=== PATIENT | male | born 1970 | race Caucasian/White ===

== ENCOUNTER 2016-11-20 14:49 | Inpatient (IN) | payer OTHER ==
[2016-11-20 15:36] VITALS: BMI 25.7
--- NOTE | 2016-11-20 17:15 | HP ---
COWS - Scale Resting Pulse: 0= [place] 80 or Below Sweatin=Flushed/Facial Moisture Restless Observation: 1= Difficult to Sit Still Pupil Size: 2= Moderately Dilated Bone or Joint Aches: 2= Severe Diffuse Aches Runny Nose/ Eye Tearin= Runny Nose/Eyes GI Upset > 30mins: 2= Nausea/Diarrhea Tremor Observation: 2= Slight Tremor Visible Yawning Observation: 1= 1-2x During Session Anxiety or Irritability: 2=Irritable/Anxious Goose Flesh Skin: 0=Smooth Skin COWS Score: 16 Admission ROS S - HPI Chief Complaint: Withdrawal sx. Allergies/Adverse Reactions: Allergies Allergy/AdvReac Type Severity Reaction Status Date / Time shrimp Allergy Verified 11/20/16 17:08 History of Present Illness: 46 y/o man with a long hx. of drug dependence is admitted for detox.Pt. has been in previous detox,denies significant period drug free. Exam Limitations: No Limitations - Ebola screening Have you traveled outside of the country in the last 21 days: No Have you had contact with anyone from an Ebola affected area: No Have you been sick,other than usual withdrawal symptoms: No Do you have a fever: No - Review of Systems Constitutional: Diaphoresis EENT: reports: Nose Congestion Respiratory: reports: Cough (asthma), Wheezing (asthma) Cardiac: reports: No Symptoms Reported GI: reports: Nausea, Abdominal cramping : reports: No Symptoms Reported Musculoskeletal: reports: Back Pain, Joint Pain, Muscle Pain Integumentary: reports: Erythema Neuro: reports: Tremors Endocrine: reports: No Symptoms Reported Hematology: reports: No Symptoms Reported Psychiatric: reports: No Sypmtoms Reported Other Systems: Reviewed and Negative Patient History - Patient Medical History Hx Anemia: No Hx Asthma: Yes Hx Cancer: No Hx Cardiac Disorders: No Hx Congestive Heart Failure: No Hx Hypertension: No Hx Hypercholesterolemia: No Hx Pacemaker: No HX Cerebrovascular Accident: No Hx Seizures: No Hx Dementia: No Hx Diabetes: No Hx Gastrointestinal Disorders: No Hx Liver Disease: No Hx Genitourinary Disorders: No Hx Sexually Transmitted Disorders: No Hx Renal Disease (ESRD): No Hx Thyroid Disease: No Hx Human Immunodeficiency Virus (HIV): No Hx Hepatitis C: No Hx Depression: No Hx Suicide Attempt: No Hx Bipolar Disorder: No Hx Schizophrenia: No - Patient Surgical History Past Surgical History: No - PPD History Previous Implant?: Yes Documented Results: Negative w/o proof Implanted On Prior [facility] Admission?: No PPD to be Administered?: Yes - Smoking Cessation Smoking history: Current every day smoker Aproximately how many cigarettes per day: 5 Hx Chewing Tobacco Use: No Initiated information on smoking cessation: Yes 'Breaking Loose' booklet given: 11/20/16 - Substance & Tx. History Hx Alcohol Use: No Hx Substance Use: Yes Substance Use Type: Heroin, Marijuana Hx Substance Use Treatment: Yes (detox at [facility] in 2013) - Substances Abused Heroin Route: Inhalation Frequency: Daily Amount used: 5-6 bags Age of first use: 42 Date of Last Use: 11/20/16 Marijuana/Hashish Route: Smoking Frequency: Daily Amount used: $10-20.00 Age of first use: 15 Date of Last Use: 11/19/16 Family Disease History - Family Disease History Family Disease History: Diabetes: Father (HTN,NC), Heart Disease: Father, Respiratory: Mother Admission Physical Exam [facility] - Vital Signs Vital Signs: Vital Signs - 24 hr 11/20/16 15:13 Temperature 97.2 F L Pulse Rate 74 Respiratory 18 Rate Blood Pressure 153/84 - Physical General Appearance: Yes: Sweating, Anxious HEENTM: Yes: Nasal Congestion, Rhinorrhea Respiratory: Yes: Chest Non-Tender, Wheezing (mild expiratory wheezing) Neck: Yes: Supple Breast: Yes: Breast Exam Deferred Cardiology: Yes: Regular Rhythm, Regular Rate, S1, S2 Abdominal: Yes: Normal Bowel Sounds, Non Tender, Soft Genitourinary: Yes: Within Normal Limits Back: Yes: Within Normal Limits Musculoskeletal: Yes: Within Normal Limits Extremities: Yes: Tremors Neurological: Yes: Fully Oriented, Alert Integumentary: Yes: Diaphoresis Lymphatic: Yes: Within Normal Limits - Diagnostic (1) Cannabis dependence, uncomplicated Current Visit: Yes Status: Acute (2) Opioid dependence with withdrawal Current Visit: Yes Status: Acute (3) Asthma Current Visit: Yes Status: Acute Cleared for Admission [facility] - Detox or Rehab [facility] Level of Care: Medically Managed Detox Regimen/Protocol: Methadone [facility] Breath Alcohol Content Breath Alcohol Content: 0 Urine Drug Screen - Results Drug Screen Negative: No Urine Drug Screen Results: THC-Marijuana, OPI-Opiates, PCP-Phencyclidine, BZO- Benzodiazepines
[2016-11-20] MEDS ORDERED: NICOTINE POLACRILEX 2 MG GUM BC PRN (17:28)
[2016-11-20] MEDS ORDERED: guaiFENesin/D-METHORPHAN HB 10 ML UNIT-DOSE CUPS PO PRN (17:28)
[2016-11-20] MEDS ORDERED: METHADONE HCL 10 MG TABLET (FOR DETOX USE ONLY) PO ONE ×2 (17:28→23:00)
[2016-11-20] MEDS ORDERED: MENTHOL/PHENOL 1 EACH UD MM PRN (17:28)
[2016-11-20] MEDS ORDERED: ACETAMINOPHEN 325 MG TABLET (FP) PO PRN (17:28)
[2016-11-20] MEDS ORDERED: MAGNESIUM HYDROX 2400MG/30ML ORAL SUSPENSION 30 ML CUP PO PRN (17:28)
[2016-11-20] MEDS ORDERED: LOPERAMIDE HCL 2 MG CAPSULE PO PRN (17:28)
[2016-11-20] MEDS ORDERED: P-EPHED 60MG/TRIPROLIDI 2.5MG TABLET PO PRN (17:28)
[2016-11-20] MEDS ORDERED: IBUPROFEN 400 MG TABLET (FP) PO PRN (17:28)
[2016-11-20] MEDS ORDERED: MAG HYDROX/AL HYDROX/SIMETH 30 ML UNIT-DOSE CUP PO PRN (17:28)
[2016-11-20] MEDS ORDERED: MAGNESIUM CITRATE 300 ML BOTTLE PO PRN (17:28)
[2016-11-20] MEDS ORDERED: ALBUTEROL SO4 2.5/IPRATROPIUM 0.5 INH SOL 3 ML VIAL.NEB. NEB PRN (17:29)
[2016-11-20] MEDS: diazePAM 5 MG TABLET PO PRN ×2 (18:06→22:20)
[2016-11-20] MEDS: NICOTINE 14 MG/24 HOURS TOPICAL PATCH TD SCH (18:11)
[2016-11-20] MEDS: ALBUTEROL SO4 2.5/IPRATROPIUM 0.5 INH SOL 3 ML VIAL.NEB. NEB SCH ×2 (18:14→22:19)
[2016-11-20] MEDS: THIAMINE HCL 100 MG TABLET (FP) PO SCH (22:18)
[2016-11-20] MEDS: ALBUTEROL SO4 6.7 GM HFA INHALER IH PRN (23:40)
[2016-11-21] MEDS: diazePAM 5 MG TABLET PO PRN ×4 (03:03→23:24)
[2016-11-21] MEDS: PRENATAL VITAMINS W/ FOLIC ACID TABLET (FP) PO SCH (09:57)
[2016-11-21] MEDS: NICOTINE 14 MG/24 HOURS TOPICAL PATCH TD SCH (09:58)
[2016-11-21] MEDS: ALBUTEROL SO4 2.5/IPRATROPIUM 0.5 INH SOL 3 ML VIAL.NEB. NEB SCH ×4 (09:58→22:15)
[2016-11-21] MEDS ORDERED: METHADONE HCL 10 MG TABLET (FOR DETOX USE ONLY) PO ONE (10:00)
--- NOTE | 2016-11-21 10:22 | EKG ---
Test Reason : Blood Pressure : / mmHG Vent. Rate : 065 BPM Atrial Rate : 065 BPM P-R Int : 140 ms QRS Dur : 090 ms QT Int : 408 ms P-R-T Axes : 054 067 035 degrees QTc Int : 424 ms NORMAL SINUS RHYTHM NORMAL ECG NO PREVIOUS ECGS AVAILABLE Confirmed by PALMER MCLAUGHLIN MD ([id number]) on 11/21/2016 10:22:10 AM Referred By: Confirmed By:PALMER MCLAUGHLIN MD
[2016-11-21 10:35] LABS: MCHC 33.8 g/dl (32.0-35.9); MEAN CELL VOLUME 88.7 fl (80-96); MEAN PLT VOLUME 8.1 fl (7.5-11.1); PLATELET COUNT 244 K/MM3 (134-434); RDW 13.1 % (11.9-15.9); WHITE BLOOD COUNT 6.2 K/mm3 (4.0-10.0)
[2016-11-21 10:36] LABS: ALBUMIN 3.1 g/dl (3.4-5.0); ANION GAP 10 (8-16); CALCIUM 8.1 mg/dL (8.5-10.1); CO2 26 mmol/L (21-32); GLUCOSE,RANDOM 97 mg/dL (74-106); SGOT/AST 18 U/L (15-37); SGPT/ALT 28 U/L (12-78)
[2016-11-21 10:38] LABS: ALK PHOS 89 U/L (45-117); BILIRUBIN,TOTAL 0.2 mg/dL (0.2-1.0); TOT PROT 5.8 g/dl (6.4-8.2)
--- NOTE | 2016-11-21 15:26 | PN ---
BHS COWS - Scale Resting Pulse: 0= [place] 80 or Below Sweatin=Flushed/Facial Moisture Restless Observation: 3= Extraneous Movement Pupil Size: 0= Normal to Room Light Bone or Joint Aches: 2= Severe Diffuse Aches Runny Nose/ Eye Tearin= Runny Nose/Eyes GI Upset > 30mins: 2= Nausea/Diarrhea Tremor Observation of Outstretched Hands: 2= Slight Tremor Visible Yawning Observation: 1= 1-2x During Session Anxiety or Irritability: 2=Irritable/Anxious Goose Flesh Skin: 0=Smooth Skin COWS Score: 16 BHS Progress Note (SOAP) Subjective: Sweating, nausea, anxious, interrupted sleep Objective: 11/21/16 15:25 Last Vital Signs Temp Pulse Resp BP Pulse Ox 97.5 F L 53 L 18 141/84 11/21/16 13:24 11/21/16 13:24 11/21/16 13:24 11/21/16 13:24 Laboratory Tests 11/21/16 11/21/16 11/21/16 07:50 07:50 07:50 WBC 6.2 RBC 4.50 Hgb 13.5 Hct 39.9 MCV 88.7 MCHC 33.8 RDW 13.1 Plt Count 244 MPV 8.1 Sodium 141 Potassium 3.7 Chloride 105 Carbon Dioxide 26 Anion Gap 10 BUN 13 Creatinine 1.0 Creat Clearance w eGFR > 60 Random Glucose 97 Calcium 8.1 L Total Bilirubin 0.2 AST 18 ALT 28 Alkaline Phosphatase 89 Total Protein 5.8 L Albumin 3.1 L RPR Titer Nonreactive Labs noted Assessment: 11/21/16 15:26 Withdrawal symptoms Plan: Continue detox
[2016-11-21] MEDS: ALBUTEROL SO4 6.7 GM HFA INHALER IH PRN (17:24)
[2016-11-21 20:15] LABS: URINE APPEARANCE CLEAR; URINE BILIRUBIN NEGATIVE (NEGATIVE); URINE COLOR STRAW; URINE GLUCOSE (UA) NEGATIVE (NEGATIVE); URINE KETONE NEGATIVE (NEGATIVE); URINE LEUK ESTERASE NEGATIVE (NEGATIVE); URINE NITRITE NEGATIVE (NEGATIVE); URINE PROTEIN NEGATIVE (NEGATIVE); URINE UROBILINOGEN NEGATIVE E.U./dl (0.2-1.0)
[2016-11-21 20:16] LABS: URINE BLOOD 1+ (NEGATIVE)
[2016-11-21 20:18] LABS: URINE MUCUS RARE; URINE RBC 2 /hpf (0-3); URINE WBC <1 /hpf (3-5)
[2016-11-21] MEDS: THIAMINE HCL 100 MG TABLET (FP) PO SCH (22:14)
[2016-11-21] MEDS: diphenhydrAMINE HCL 50 MG CAPSULE PO PRN (22:15)
[2016-11-22] MEDS: diazePAM 5 MG TABLET PO PRN ×3 (03:34→22:12)
[2016-11-22] MEDS ORDERED: METHADONE HCL 5 MG TABLET (FOR DETOX USE ONLY) PO ONE (10:00)
[2016-11-22] MEDS: PRENATAL VITAMINS W/ FOLIC ACID TABLET (FP) PO SCH (10:43)
[2016-11-22] MEDS: ALBUTEROL SO4 2.5/IPRATROPIUM 0.5 INH SOL 3 ML VIAL.NEB. NEB SCH ×2 (11:14→14:00)
[2016-11-22] MEDS: NICOTINE 14 MG/24 HOURS TOPICAL PATCH TD SCH (11:15)
--- NOTE | 2016-11-22 15:05 | PN ---
BHS COWS - Scale Resting Pulse: 0= [place] 80 or Below Sweatin=Flushed/Facial Moisture Restless Observation: 1= Difficult to Sit Still Pupil Size: 0= Normal to Room Light Bone or Joint Aches: 2= Severe Diffuse Aches Runny Nose/ Eye Tearin= Runny Nose/Eyes GI Upset > 30mins: 2= Nausea/Diarrhea Tremor Observation of Outstretched Hands: 2= Slight Tremor Visible Yawning Observation: 1= 1-2x During Session Anxiety or Irritability: 2=Irritable/Anxious Goose Flesh Skin: 0=Smooth Skin COWS Score: 14 BHS Progress Note (SOAP) Subjective: Sweating,anxiety,tremors,interrupted sleep,restless. Objective: 11/22/16 15:03 Vital Signs - 8 hr 11/22/16 11/22/16 09:54 13:55 Temperature 97.8 F 97.5 F L Pulse Rate 48 L 53 L Respiratory 20 18 Rate Blood Pressure 157/92 134/86 Laboratory Tests 11/21/16 11/21/16 11/21/16 07:50 07:50 07:50 WBC 6.2 RBC 4.50 Hgb 13.5 Hct 39.9 MCV 88.7 MCHC 33.8 RDW 13.1 Plt Count 244 MPV 8.1 Sodium 141 Potassium 3.7 Chloride 105 Carbon Dioxide 26 Anion Gap 10 BUN 13 Creatinine 1.0 Creat Clearance w eGFR > 60 Random Glucose 97 Calcium 8.1 L Total Bilirubin 0.2 AST 18 ALT 28 Alkaline Phosphatase 89 Total Protein 5.8 L Albumin 3.1 L Urine Color Urine Appearance Urine pH Ur Specific [place] Urine Protein Urine Glucose (UA) Urine Ketones Urine Blood Urine Nitrite Urine Bilirubin Urine Urobilinogen Ur Leukocyte Esterase Urine RBC Urine WBC Ur Epithelial Cells Urine Mucus RPR Titer Nonreactive 11/21/16 09:55 WBC RBC Hgb Hct MCV MCHC RDW Plt Count MPV Sodium Potassium Chloride Carbon Dioxide Anion Gap BUN Creatinine Creat Clearance w eGFR Random Glucose Calcium Total Bilirubin AST ALT Alkaline Phosphatase Total Protein Albumin Urine Color Straw Urine Appearance Clear Urine pH 5.0 Ur Specific [place] 1.010 Urine Protein Negative Urine Glucose (UA) Negative Urine Ketones Negative Urine Blood 1+ H Urine Nitrite Negative Urine Bilirubin Negative Urine Urobilinogen Negative Ur Leukocyte Esterase Negative Urine RBC 2 Urine WBC <1 Ur Epithelial Cells Rare Urine Mucus Rare RPR Titer labs noted Assessment: 11/22/16 15:04 Withdrawal sx. Plan: Continue detox
[2016-11-22] MEDS: ALBUTEROL SO4 6.7 GM HFA INHALER IH PRN (19:53)
[2016-11-22] MEDS: diphenhydrAMINE HCL 50 MG CAPSULE PO PRN (22:12)
[2016-11-22] MEDS: THIAMINE HCL 100 MG TABLET (FP) PO SCH (22:12)
[2016-11-23] MEDS: hydrOXYzine PAMOATE 50 MG CAPSULE (FP) PO PRN ×2 (01:10→22:06)
[2016-11-23] MEDS: diazePAM 5 MG TABLET PO PRN ×2 (05:44→17:18)
[2016-11-23] MEDS ORDERED: METHADONE HCL 5 MG TABLET (FOR DETOX USE ONLY) PO ONE (10:00)
[2016-11-23] MEDS: PRENATAL VITAMINS W/ FOLIC ACID TABLET (FP) PO SCH (10:07)
[2016-11-23] MEDS: NICOTINE 14 MG/24 HOURS TOPICAL PATCH TD SCH (11:12)
[2016-11-23] MEDS: ALBUTEROL SO4 2.5/IPRATROPIUM 0.5 INH SOL 3 ML VIAL.NEB. NEB SCH ×3 (11:12→22:07)
--- NOTE | 2016-11-23 11:41 | PN ---
BHS Progress Note (SOAP) Subjective: DECREASED ANXIETY,TREMORS, MEDS EFFECTIVE. Objective: 11/23/16 11:40 Vital Signs Temperature 97.2 F L 11/23/16 09:34 Pulse Rate 61 11/23/16 09:34 Respiratory Rate 18 11/23/16 09:34 Blood Pressure 125/85 11/23/16 09:34 O2 Sat by Pulse Oximetry (%) Laboratory Last Values WBC 6.2 K/mm3 (4.0-10.0) 11/21/16 07:50 RBC 4.50 M/mm3 (4.00-5.60) 11/21/16 07:50 Hgb 13.5 GM/dL (11.7-16.9) 11/21/16 07:50 Hct 39.9 % (35.4-49) 11/21/16 07:50 MCV 88.7 fl (80-96) 11/21/16 07:50 MCHC 33.8 g/dl (32.0-35.9) 11/21/16 07:50 RDW 13.1 % (11.9-15.9) 11/21/16 07:50 Plt Count 244 K/MM3 (134-434) 11/21/16 07:50 MPV 8.1 fl (7.5-11.1) 11/21/16 07:50 Sodium 141 mmol/L (136-145) 11/21/16 07:50 Potassium 3.7 mmol/L (3.5-5.1) 11/21/16 07:50 Chloride 105 mmol/L (98-107) 11/21/16 07:50 Carbon Dioxide 26 mmol/L (21-32) 11/21/16 07:50 Anion Gap 10 (8-16) 11/21/16 07:50 BUN 13 mg/dL (7-18) 11/21/16 07:50 Creatinine 1.0 mg/dL (0.7-1.3) 11/21/16 07:50 Creat Clearance w eGFR > 60 (>60) 11/21/16 07:50 Random Glucose 97 mg/dL (74-106) 11/21/16 07:50 Calcium 8.1 mg/dL (8.5-10.1) L 11/21/16 07:50 Total Bilirubin 0.2 mg/dL (0.2-1.0) 11/21/16 07:50 AST 18 U/L (15-37) 11/21/16 07:50 ALT 28 U/L (12-78) 11/21/16 07:50 Alkaline Phosphatase 89 U/L (45-117) 11/21/16 07:50 Total Protein 5.8 g/dl (6.4-8.2) L 11/21/16 07:50 Albumin 3.1 g/dl (3.4-5.0) L 11/21/16 07:50 Urine Color Straw 11/21/16 09:55 Urine Appearance Clear 11/21/16 09:55 Urine pH 5.0 (5.0-8.0) 11/21/16 09:55 Ur Specific [place] 1.010 (1.005-1.025) 11/21/16 09:55 Urine Protein Negative (NEGATIVE) 11/21/16 09:55 Urine Glucose (UA) Negative (NEGATIVE) 11/21/16 09:55 Urine Ketones Negative (NEGATIVE) 11/21/16 09:55 Urine Blood 1+ (NEGATIVE) H 11/21/16 09:55 Urine Nitrite Negative (NEGATIVE) 11/21/16 09:55 Urine Bilirubin Negative (NEGATIVE) 11/21/16 09:55 Urine Urobilinogen Negative E.U./dl (0.2-1.0) 11/21/16 09:55 Ur Leukocyte Esterase Negative (NEGATIVE) 11/21/16 09:55 Urine RBC 2 /hpf (0-3) 11/21/16 09:55 Urine WBC <1 /hpf (3-5) 11/21/16 09:55 Ur Epithelial Cells Rare /hpf (FEW) 11/21/16 09:55 Urine Mucus Rare 11/21/16 09:55 RPR Titer Nonreactive (NONREACTIVE) 11/21/16 07:50 Assessment: 11/23/16 11:40 DECREASED WITHDRAWAL SX Plan: CONTINUE DETOX
[2016-11-23] MEDS: THIAMINE HCL 100 MG TABLET (FP) PO SCH (22:06)
[2016-11-24] MEDS: hydrOXYzine PAMOATE 50 MG CAPSULE (FP) PO PRN (05:48)
[2016-11-24] MEDS: ALBUTEROL SO4 2.5/IPRATROPIUM 0.5 INH SOL 3 ML VIAL.NEB. NEB SCH ×4 (09:40→22:17)
[2016-11-24] MEDS ORDERED: METHADONE HCL 10 MG TABLET (FOR DETOX USE ONLY) PO ONE (10:00)
--- NOTE | 2016-11-24 10:06 | PN ---
BHS Progress Note (SOAP) Subjective: DECREASED WITHDRAWAL SX. ALERT O X 3. OOB ON HALLWAYS AND AROUND THE UNIT. Objective: 11/24/16 10:04 Vital Signs Temperature 97.7 F 11/24/16 09:34 Pulse Rate 76 11/24/16 09:34 Respiratory Rate 18 11/24/16 09:34 Blood Pressure 140/85 11/24/16 09:34 O2 Sat by Pulse Oximetry (%) Assessment: 11/24/16 10:04 NAD Plan: CONTINUE DETOX
[2016-11-24] MEDS: NICOTINE 14 MG/24 HOURS TOPICAL PATCH TD SCH (10:11)
[2016-11-24] MEDS: PRENATAL VITAMINS W/ FOLIC ACID TABLET (FP) PO SCH (10:11)
[2016-11-24] MEDS: ALBUTEROL SO4 6.7 GM HFA INHALER IH PRN (10:12)
[2016-11-24] MEDS: THIAMINE HCL 100 MG TABLET (FP) PO SCH (22:17)
[2016-11-24] MEDS: diphenhydrAMINE HCL 50 MG CAPSULE PO PRN (22:17)
[2016-11-25] MEDS: hydrOXYzine PAMOATE 50 MG CAPSULE (FP) PO PRN (02:44)
[2016-11-25] MEDS ORDERED: METHADONE HCL 5 MG TABLET (FOR DETOX USE ONLY) PO ONE (06:00)
--- NOTE | 2016-11-25 09:53 | DS ---
[facility] Detox Discharge Summary Admission Date: 11/20/16 Discharge Date: 11/25/16 - History Present History: Cannabis Dependence, Opioid Dependence Additional Comments: DETOX COMPLETED. ALERT O X 3. NAD Pertinent Past History: ASTHMA - Physical Exam Results Vital Signs: Vital Signs Temperature 98.9 F 11/25/16 06:52 Pulse Rate 73 11/25/16 06:52 Respiratory Rate 18 11/25/16 06:52 Blood Pressure 150/98 11/25/16 06:52 O2 Sat by Pulse Oximetry (%) Pertinent Admission Physical Exam Findings: WITHDRAWAL SX - Treatment Hospital Course: Detox Protocol Followed, Detoxed Safely, Responded well, Discharged Condition Good Patient has Accepted a Rehab Referral to: REFUSED BUT ENCOURAGED TO GO TO [facility] OPD - Medication Discharge Medications: Ambulatory Orders Albuterol Sulfate Inhaler - [Ventolin HFA Inhaler -] 2 inh PO Q4H PRN 11/20/16 - Diagnosis (1) Asthma Status: Chronic Qualifiers: Asthma severity: mild intermittent Asthma complication type: uncomplicated Qualified Code(s): J45.20 - Mild intermittent asthma, uncomplicated (2) Cannabis dependence, uncomplicated Status: Acute (3) Opioid dependence with withdrawal Status: Acute - AMA Did Patient Leave Against Medical Advice: No
[2016-11-25 10:26] VITALS: BP 134/83; PULSE 80; TEMP 98.5
== END 2016-11-25 10:10 | disposition home or self-care (01) | DRG 773 ==
LOC: YASAS 14:49 → Y3N 17:19
PROVIDERS: ADMIT Internal Medicine; ATTEND Internal Medicine
PROC: HZ2ZZZZ Detoxification Services for Substance Abuse Treatment (ICD-10-PCS; principal; 2016-11-20)
DX: F11.23 Opioid dependence with withdrawal (principal); F12.20 Cannabis dependence, uncomplicated; F17.210 Nicotine dependence, cigarettes, uncomplicated; J45.20 Mild intermittent asthma, uncomplicated
CPT/HCPCS: 36415; 80053; 81003; 81015; 85027; 86593; 93005; 93010; 94640